=== PATIENT | female | born 1990 | race Caucasian/White ===

== ENCOUNTER 2020-03-07 09:30 | Inpatient (IN) | payer MEDICAID ==
[2020-03-07] MEDS ORDERED: Nalbuphine 10 MG/ML Syringe IVPUSH PRN (15:38)
[2020-03-07] MEDS ORDERED: Sodium Chloride 0.9% 10 ML Syringe FLUSH PRN (15:38)
[2020-03-07] MEDS ORDERED: Misoprostol 25 MCG (1/4 of 100 MCG) Tab VAG PRN (15:38)
--- NOTE | 2020-03-07 15:44 | PCM.LDHP ---
L&D History of Present Illness - General Date of Service: 03/07/20 Admit Problem/Dx: Patient Status Order with Admit Dx/Problem 03/07/20 15:38 Patient Status [ADT] Routine Admission Diagnosis/Problem Admission Diagnosis/Problem High risk Source of Information: Patient History Limitations: Reports: No Limitations - History of Present Illness Introduction:: Patient is a 29-year-old at 39-0/7 weeks gestation. Had routine appointment today when it was noted at fundal height had fallen off. Ultrasound done showed overall EFW at the 3rd percentile. DAVID low normal with a total of 6.7 and single deepest pocket of 3.6 cm. Patient was counseled on these findings and instructed to proceed for induction of labor. Otherwise doing well. 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): Psychiatric History: Reports: ADHD, Anxiety - Infectious Disease History Infectious Disease History: Reports: Herpes (possible history - uncertain) Social & Family History - Tobacco Use Smoking Status *Q: Former Smoker - Alcohol Use Alcohol Use History: No - Recreational Drug Use Recreational Drug Use: No H&P Review of Systems - Review of Systems: Review Of Systems: See Below General: Reports: No Symptoms Pulmonary: Reports: No Symptoms Cardiovascular: Reports: No Symptoms Gastrointestinal: Reports: No Symptoms Genitourinary: Reports: No Symptoms Musculoskeletal: Reports: No Symptoms Psychiatric: Reports: No Symptoms Neurological: Reports: No Symptoms L&D Exam - Exam Exam: See Below - OB Specific Contraction Intensity: Irritability Movement: Active Heart Tones: Present Heart Tones per Min: 135 Heart Rate (FHR) Variability: Moderate (6-25 bmp) Presentation: Vertex - Pearson Score Pearson Score Cervix Position: Midposition Pearson Score Consistency: Soft Pearson Score Effacement: 51-70% Eparson Score Dilation: 1-2 cm Pearson Score Infant's Station: -2 Pearson Score Total: 7 - Exam General: Alert, Oriented, Cooperative Lungs: Clear to Auscultation, Normal Respiratory Effort Cardiovascular: Regular Rate, Regular Rhythm GI/Abdominal Exam: Soft, Non-Tender Genitourinary: Normal external exam Extremities: Normal Inspection Skin: Warm, Dry, Intact - Patient Data Result Diagrams: 03/07/20 16:53 - Problem List (1) 39 weeks gestation of SNOMED Code(s): 69638710 ICD Code: Z3A.39 - 39 WEEKS GESTATION OF Status: Acute Current Visit: No (2) IUGR (intrauterine growth restriction) SNOMED Code(s): 91802928 ICD Code: [id number] - Status: Acute Current Visit: No Problem List Initiated/Reviewed/Updated: Yes Orders Last 24hrs: Active Orders 24 hr Category Date Time Status Patient Status [ADT] Routine ADT 03/07/20 15:38 Ordered Communication Order [RC] ASDIRECTED Care 03/07/20 15:38 Ordered Communication Order [RC] ASDIRECTED Care 03/07/20 15:38 Ordered Communication Order [RC] ASDIRECTED Care 03/07/20 15:38 Ordered Monitoring [RC] INTERMITTENT Care 03/07/20 15:38 Ordered Non Stress Test [RC] PER UNIT ROUTINE Care 03/07/20 15:38 Ordered Notify Provider [RC] ASDIRECTED Care 03/07/20 15:38 Ordered Notify Provider [RC] PRN Care 03/07/20 15:38 Ordered Peripheral IV Care [RC] . DIRECTED Care 03/07/20 15:38 Ordered Up ad Annie [RC] ASDIRECTED Care 03/07/20 15:38 Ordered Vaginal Exam [RC] ASDIRECTED Care 03/07/20 15:38 Ordered Vital Signs [RC] ASDIRECTED Care 03/07/20 15:38 Ordered Vital Signs [RC] PER UNIT ROUTINE Care 03/07/20 15:38 Ordered Regular Diet [DIET] Diet 03/07/20 Dinner Ordered CBC W/O DIFF,HEMOGRAM [HEME] Timed Lab 03/07/20 16:30 Ordered CORONAVIRUS COVID-19 AMANDO [MOLEC] Routine Lab 03/07/20 15:38 Ordered RAPID PLASMA REAGIN,RPR [CHEM] Routine Lab 03/07/20 16:30 Ordered TYPE AND SCREEN [BBK] Timed Lab 03/07/20 16:30 Ordered Lactated Ringers [Ringers, Lactated] 1,000 ml Med 03/07/20 15:45 Ordered IV ASDIRECTED Nalbuphine [Nubain] Med 03/07/20 15:38 Ordered 10 mg IVPUSH Q2H PRN Ondansetron [Zofran] Med 03/07/20 15:38 Ordered 4 mg IVPUSH Q4H PRN Oxytocin/Lactated Ringers [Pitocin in LR 10 Units/1,000 Med 03/07/20 15:45 Ordered ML] 10 unit in 1,000 ml IV .CONTINUOUS Oxytocin/Lactated Ringers [Pitocin in LR 10 Units/1,000 Med 03/07/20 15:45 Ordered ML] 10 unit in 1,000 ml IV TITRATE Sodium Chloride 0.9% [Saline Flush] Med 03/07/20 15:38 Ordered 10 ml FLUSH ASDIRECTED PRN Zolpidem [Ambien] Med 03/07/20 15:38 Ordered 5 mg PO BEDTIME PRN miSOPROStoL [Cytotec] Med 03/07/20 15:38 Ordered 25 mcg VAG Q4H PRN Electronic Heart Tones Internal [WOMSER] Per Unit Oth 03/07/20 15:38 Ordered Routine Medication Administration Instruction [OM.PC] Oth 03/07/20 15:45 Ordered ASDIRECTED Peripheral IV Insertion Adult [OM.PC] Routine Oth 03/07/20 15:38 Ordered Resuscitation Status Routine Resus Stat 03/07/20 15:38 Ordered Assessment/Plan Comment:: * Labs done * GBS negative * Pitocin for IOL, AROM when able * Pain management per patient preference * Anticipate
[2020-03-07] MEDS ORDERED: Oxytocin/Lactated Ringers 10 UNIT/1,000 ML BAG IV SCH ×2 (15:45)
[2020-03-07] MEDS ORDERED: Misoprostol 25 MCG (1/4 of 100 MCG) Tab ONE (16:28)
[2020-03-07] MEDS: Lactated Ringers 1,000 ML IV SCH ×3 (17:16→22:37)
--- NOTE | 2020-03-07 19:56 | PCM.PNLD ---
Labor Progress Note - VS & Meds Vital Signs: Last Vital Signs Temp 36.6 C 03/07/20 15:38 Pulse 80 03/07/20 15:38 Resp 16 03/07/20 15:38 BP 125/85 03/07/20 15:38 Pulse Ox 99 03/07/20 15:38 Active Medications: Current Medications Oxytocin/Lactated Ringer's (Pitocin In Lr 10 Units/1,000 Ml) 10 unit in 1,000 mls @ 12 mls/hr IV TITRATE ERICKA; Protocol Last Titration: 03/07/20 18:45 Dose: 8 munits/min, 48 mls/hr Documented by: Oxytocin/Lactated Ringer's (Pitocin In Lr 10 Units/1,000 Ml) 10 unit in 1,000 mls @ 500 mls/hr IV .CONTINUOUS ERICKA Lactated Ringer's (Ringers, Lactated) 1,000 mls @ 40 mls/hr IV ASDIRECTED ERICKA Last Admin: 03/07/20 17:16 Dose: 40 mls/hr Documented by: Misoprostol (Cytotec) 25 mcg VAG Q4H PRN PRN Reason: cervical ripening Nalbuphine HCl (Nubain) 10 mg IVPUSH Q2H PRN PRN Reason: Pain Ondansetron HCl (Zofran) 4 mg IVPUSH Q4H PRN PRN Reason: Nausea/Vomiting Sodium Chloride (Saline Flush) 10 ml FLUSH ASDIRECTED PRN PRN Reason: Keep Vein Open Zolpidem Tartrate (Ambien) 5 mg PO BEDTIME PRN PRN Reason: Insomnia Discontinued Medications Misoprostol (Cytotec) Confirm Administered Dose 25 mcg .ROUTE .STK-MED ONE Stop: 03/07/20 16:29 - Uterine Contractions Uterine Monitoring Mode: External [place] Contraction Intensity: Mild to Moderate Uterine Resting Tone: Soft - Monitoring Monitor Mode: External Ultrasound Heart Rate (FHR) Baseline: 135 Heart Rate (FHR) Variability: Moderate (6-25 bmp) Accelerations: Present, 15x15 Decelerations: None Strip Review: Category I - Vaginal Exam Dilation (cm): 3 Effacement (Percent): 80 Station: -1 Cervical Position: Midposition Sterile Vaginal Exam Performed By: Lily Vasquez - Labor Progress (Free Text) Labor Progress: Doing well. Pitocin at 8. Rates contractions as a 5-6/10. AROM performed with release of scant amount of fluid. Continue present management
[2020-03-07] MEDS ORDERED: Zolpidem 5 MG Tab PO PRN (21:00)
[2020-03-07] MEDS ORDERED: diphenhydrAMINE 50 MG/ML SDV IVPUSH PRN (21:06)
[2020-03-07] MEDS ORDERED: fentaNYL 100 MCG/2 ML SDV EPIDUR PRN (21:06)
[2020-03-07] MEDS ORDERED: ePHEDrine 50 MG/ML SDV IVPUSH PRN (21:06)
[2020-03-07] MEDS: Ondansetron 4 MG/2 ML SDV IVPUSH PRN (21:49)
[2020-03-07] MEDS: Bupivacaine/fentaNYL/NS 100 ML Bag EPIDUR PRN (21:55)
--- NOTE | 2020-03-07 22:19 | PCM.PREANE ---
Preanesthetic Assessment - Procedure Proposed Procedure: shaji - Anesthesia/Transfusion/Family Hx Anesthesia History: No Prior Anesthesia Family History of Anesthesia Reaction: No Transfusion History: No Prior Transfusion(s) - Review of Systems General: No Symptoms Pulmonary: No Symptoms Cardiovascular: No Symptoms Gastrointestinal: No Symptoms Neurological: No Symptoms Other: Reports: None - Physical Assessment Vital Signs: Last Vital Signs Temp 97.9 F 03/07/20 15:38 Pulse 80 03/07/20 15:38 Resp 16 03/07/20 15:38 BP 125/85 03/07/20 15:38 Pulse Ox 99 03/07/20 15:38 Height: 5 ft 3 in Weight: 85.502 kg ASA Class: 2 Mental Status: Alert & Oriented x3 Airway Class: Mallampati = 1 Dentition: Reports: Normal Dentition Thyro-Mental Finger Breadths: 3 Mouth Opening Finger Breadths: 3 ROM/Head Extension: Full Lungs: Clear to Auscultation, Normal Respiratory Effort Cardiovascular: Regular Rate, Regular Rhythm - Lab Values: Laboratory Last Values WBC 19.00 K/mm3 (3.98-10.04) H 03/07/20 16:53 RBC 4.55 M/mm3 (3.98-5.22) 03/07/20 16:53 Hgb 13.9 gm/dl (11.2-15.7) 03/07/20 16:53 Hct 42.2 % (34.1-44.9) 03/07/20 16:53 MCV 92.7 fl (79.4-94.8) 03/07/20 16:53 MCH 30.5 pg (25.6-32.2) 03/07/20 16:53 MCHC 32.9 g/dl (32.2-35.5) 03/07/20 16:53 RDW Std Deviation 45.9 fL (36.4-46.3) 03/07/20 16:53 Plt Count 287 K/mm3 (182-369) 03/07/20 16:53 MPV 10.8 fl (9.4-12.3) 03/07/20 16:53 COVID-19 (AMANDO) Negative (NEGATIVE) 03/07/20 17:00 Blood Type B POSITIVE 03/07/20 16:53 Gel Antibody Screen Negative 03/07/20 16:53 - Allergies Allergies/Adverse Reactions: Allergies Allergy/AdvReac Type Severity Reaction Status Date / Time No Known Allergies Allergy Verified 03/07/20 16:58 - Blood Blood Available: No - Acknowledgements Anesthesia Type Planned: Epidural Pt an Appropriate Candidate for the Planned Anesthesia: Yes Alternatives and Risks of Anesthesia Discussed w Pt/Guardian: Yes Pt/Guardian Understands and Agrees with Anesthesia Plan: Yes PreAnesthesia Questionnaire Cardiovascular History: Reports: None Respiratory History: Reports: Asthma (exercise induced) Other Respiratory History: exercise induced asthma Gastrointestinal History: Reports: GERD (with preg) 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 Psychiatric History: Reports: ADHD, Anxiety - Infectious Disease History Infectious Disease History: Reports: Herpes (possible history - uncertain) - SUBSTANCE USE Smoking Status *Q: Former Smoker Tobacco Use Within Last Twelve Months: No Second Hand Smoke Exposure: No Days Per Week of Alcohol Use: 0 Recreational Drug Use History: No - HOME MEDS Home Medications: Home Meds Acyclovir [Zovirax] 400 mg PO TID 03/07/20 [History] Calcium Carbonate/Vitamin D3 [Calcium 500 + Vit D 400] 1 each PO DAILY 03/07/20 [History] Fluticasone Propionate [Flonase] 50 mcg NS DAILY PRN 03/07/20 [History] [place]-3/DHA/Epa/Fish Oil [[place]-3 Fish Oil 1,000 MG Sfgl] 1,000 mg PO DAILY 03/07/20 [History] Vits #93/Iron Fum/FA [ Formula Tablet] 1 each PO DAILY 03/07/20 [History] - CURRENT (IN HOUSE) MEDS Current Meds: Current Medications Diphenhydramine HCl (Benadryl) 25 mg IVPUSH Q6H PRN PRN Reason: pruritis Ephedrine Sulfate (Ephedrine Sulfate) 5 mg IVPUSH ASDIRECTED PRN PRN Reason: Hypotension Fentanyl (Sublimaze) 100 mcg EPIDUR Q3H PRN PRN Reason: Pain Last Admin: 03/07/20 21:53 Dose: 100 mcg Documented by: Fentanyl/Bupivacaine HCl (Fentanyl/Bupivacaine/Ns 2 Mcg-0.125% 100 Ml) 100 ml EPIDUR ASDIRECTED PRN PRN Reason: Pain Last Admin: 03/07/20 21:55 Dose: 100 ml Documented by: Oxytocin/Lactated Ringer's (Pitocin In Lr 10 Units/1,000 Ml) 10 unit in 1,000 mls @ 12 mls/hr IV TITRATE ERICKA; Protocol Last Titration: 03/07/20 18:45 Dose: 8 munits/min, 48 mls/hr Documented by: Oxytocin/Lactated Ringer's (Pitocin In Lr 10 Units/1,000 Ml) 10 unit in 1,000 mls @ 500 mls/hr IV .CONTINUOUS ERICKA Lactated Ringer's (Ringers, Lactated) 1,000 mls @ 40 mls/hr IV ASDIRECTED ERICKA Last Admin: 03/07/20 21:50 Dose: 40 mls/hr Documented by: Misoprostol (Cytotec) 25 mcg VAG Q4H PRN PRN Reason: cervical ripening Nalbuphine HCl (Nubain) 10 mg IVPUSH Q2H PRN PRN Reason: Pain Ondansetron HCl (Zofran) 4 mg IVPUSH Q4H PRN PRN Reason: Nausea/Vomiting Last Admin: 03/07/20 21:49 Dose: 4 mg Documented by: Sodium Chloride (Saline Flush) 10 ml FLUSH ASDIRECTED PRN PRN Reason: Keep Vein Open Zolpidem Tartrate (Ambien) 5 mg PO BEDTIME PRN PRN Reason: Insomnia Discontinued Medications Misoprostol (Cytotec) Confirm Administered Dose 25 mcg .ROUTE .STK-MED ONE Stop: 03/07/20 16:29
--- NOTE | 2020-03-07 23:48 | PCM.PNLD ---
Labor Progress Note - VS & Meds Vital Signs: Last Vital Signs Temp 36.6 C 03/07/20 15:38 Pulse 80 03/07/20 15:38 Resp 16 03/07/20 15:38 BP 125/85 03/07/20 15:38 Pulse Ox 99 03/07/20 15:38 Active Medications: Current Medications Diphenhydramine HCl (Benadryl) 25 mg IVPUSH Q6H PRN PRN Reason: pruritis Ephedrine Sulfate (Ephedrine Sulfate) 5 mg IVPUSH ASDIRECTED PRN PRN Reason: Hypotension Fentanyl (Sublimaze) 100 mcg EPIDUR Q3H PRN PRN Reason: Pain Last Admin: 03/07/20 21:53 Dose: 100 mcg Documented by: Fentanyl/Bupivacaine HCl (Fentanyl/Bupivacaine/Ns 2 Mcg-0.125% 100 Ml) 100 ml EPIDUR ASDIRECTED PRN PRN Reason: Pain Last Admin: 03/07/20 21:55 Dose: 100 ml Documented by: Oxytocin/Lactated Ringer's (Pitocin In Lr 10 Units/1,000 Ml) 10 unit in 1,000 mls @ 12 mls/hr IV TITRATE ERICKA; Protocol Last Titration: 03/07/20 18:45 Dose: 8 munits/min, 48 mls/hr Documented by: Oxytocin/Lactated Ringer's (Pitocin In Lr 10 Units/1,000 Ml) 10 unit in 1,000 mls @ 500 mls/hr IV .CONTINUOUS ERICKA Lactated Ringer's (Ringers, Lactated) 1,000 mls @ 40 mls/hr IV ASDIRECTED ERICKA Last Admin: 03/07/20 22:37 Dose: 40 mls/hr Documented by: Misoprostol (Cytotec) 25 mcg VAG Q4H PRN PRN Reason: cervical ripening Nalbuphine HCl (Nubain) 10 mg IVPUSH Q2H PRN PRN Reason: Pain Ondansetron HCl (Zofran) 4 mg IVPUSH Q4H PRN PRN Reason: Nausea/Vomiting Last Admin: 03/07/20 21:49 Dose: 4 mg Documented by: Sodium Chloride (Saline Flush) 10 ml FLUSH ASDIRECTED PRN PRN Reason: Keep Vein Open Zolpidem Tartrate (Ambien) 5 mg PO BEDTIME PRN PRN Reason: Insomnia Discontinued Medications Misoprostol (Cytotec) Confirm Administered Dose 25 mcg .ROUTE .STK-MED ONE Stop: 03/07/20 16:29 - Uterine Contractions Uterine Monitoring Mode: External [place] Contraction Intensity: Moderate to Strong Uterine Resting Tone: Soft - Monitoring Monitor Mode: External Ultrasound Heart Rate (FHR) Baseline: 140 Heart Rate (FHR) Variability: Moderate (6-25 bmp) - Vaginal Exam Dilation (cm): 4 Effacement (Percent): 90 Station: -1 Cervical Position: Midposition Sterile Vaginal Exam Performed By: Lily Vasquez - Labor Progress (Free Text) Labor Progress: Patient with pitocin at 8 at AROM. Was decreased afterwards due to discomfort/increasing contraction pain. Epidural complete at 2217 with pitocin at 2. Patient with a few variables at 2237. Patietn moved to place love and pitocin increased to 4. At 2304 had a 4 minute deceleration into 90's. Recovered for 1 minute and then down into 80's with slow recovery up over next 4 minutes. RN exam 3 / 80%/-1. I was called at this point. Pitocin already off and IVF bolus going. 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 IUPC placed and patient rolled all the way onto left. Variability improve to moderate. Decelerations noted to be early and variable. Contractions pattern strong. Will leave pitocin off. Continue to allow baby to recover. Family aware of plan.
--- NOTE | 2020-03-08 04:10 | PCM.SN.2 ---
- Free Text/Narrative Note: 0400 Called by RN to review tracing since I last left hospital. Had left around [place]. Tracing since showed one late deceleration into 90's at 115 after coupled contraction. Otherwise has early/variable decelerations with contractions. No other late decelerations. Some early decelerations are fairly wide due to cou pling of contractions. Patient has been making change without reinitiation of pitocin. About one hour ago was 5 cm and just had RN recheck and was 6 cm. Asked that she put patient in hands/knees as otherwise been doing lateral position changes. Will plan reassessment in 1 hour, but to call if any new/acute concerns. Lily Vasquez MD
--- NOTE | 2020-03-08 06:07 | PCM.PNLD ---
Labor Progress Note - VS & Meds Vital Signs: Last Vital Signs Temp 36.6 C 03/07/20 15:38 Pulse 80 03/07/20 15:38 Resp 16 03/07/20 15:38 BP 125/85 03/07/20 15:38 Pulse Ox 99 03/07/20 15:38 Active Medications: Current Medications Diphenhydramine HCl (Benadryl) 25 mg IVPUSH Q6H PRN PRN Reason: pruritis Ephedrine Sulfate (Ephedrine Sulfate) 5 mg IVPUSH ASDIRECTED PRN PRN Reason: Hypotension Fentanyl (Sublimaze) 100 mcg EPIDUR Q3H PRN PRN Reason: Pain Last Admin: 03/07/20 21:53 Dose: 100 mcg Documented by: Fentanyl/Bupivacaine HCl (Fentanyl/Bupivacaine/Ns 2 Mcg-0.125% 100 Ml) 100 ml EPIDUR ASDIRECTED PRN PRN Reason: Pain Last Admin: 03/07/20 21:55 Dose: 100 ml Documented by: Oxytocin/Lactated Ringer's (Pitocin In Lr 10 Units/1,000 Ml) 10 unit in 1,000 mls @ 12 mls/hr IV TITRATE ERICKA; Protocol Last Titration: 03/07/20 18:45 Dose: 8 munits/min, 48 mls/hr Documented by: Oxytocin/Lactated Ringer's (Pitocin In Lr 10 Units/1,000 Ml) 10 unit in 1,000 mls @ 500 mls/hr IV .CONTINUOUS ERICKA Lactated Ringer's (Ringers, Lactated) 1,000 mls @ 40 mls/hr IV ASDIRECTED ERICKA Last Admin: 03/07/20 22:37 Dose: 40 mls/hr Documented by: Misoprostol (Cytotec) 25 mcg VAG Q4H PRN PRN Reason: cervical ripening Nalbuphine HCl (Nubain) 10 mg IVPUSH Q2H PRN PRN Reason: Pain Ondansetron HCl (Zofran) 4 mg IVPUSH Q4H PRN PRN Reason: Nausea/Vomiting Last Admin: 03/07/20 21:49 Dose: 4 mg Documented by: Sodium Chloride (Saline Flush) 10 ml FLUSH ASDIRECTED PRN PRN Reason: Keep Vein Open Zolpidem Tartrate (Ambien) 5 mg PO BEDTIME PRN PRN Reason: Insomnia Discontinued Medications Misoprostol (Cytotec) Confirm Administered Dose 25 mcg .ROUTE .STK-MED ONE Stop: 03/07/20 16:29 - Uterine Contractions Uterine Monitoring Mode: IUPC Contraction Intensity: Moderate to Strong Uterine Resting Tone: Soft - Monitoring Monitor Mode: External Ultrasound Heart Rate (FHR) Baseline: 120 Heart Rate (FHR) Variability: Moderate (6-25 bmp) Accelerations: Present, 15x15 Decelerations: Early, Variable Strip Review: Category II - Vaginal Exam Dilation (cm): 6 Effacement (Percent): 90 Station: -1 Cervical Position: Midposition Sterile Vaginal Exam Performed By: Lily Vasquez - Labor Progress (Free Text) Labor Progress: Patient has overall been doing well. RN ALLIE at about 0500 thought patient was about 6-7. My exam currently think patient is more at about a 6. Continues to have some early decelerations and variables, but overall status reassuring with moderate variability. May need to consider augmentation in near future depending upon tolerance
[2020-03-08] MEDS: Bupivacaine/fentaNYL/NS 100 ML Bag EPIDUR PRN (06:30)
[2020-03-08] MEDS ORDERED: Metoclopramide 10 MG/2 ML SDV IVPUSH ONE (07:32)
[2020-03-08] MEDS ORDERED: Citric Acid/Sodium Citrate Solution 30 ML Cup PO ONE (07:32)
--- NOTE | 2020-03-08 07:40 | PCM.SN.2 ---
- Free Text/Narrative Note: 0715 Had started 1 unit of pitocin at 0630. Went up to 2 at about 0645. Was at 3 at 0700 for 5 minutes before back down to 2. Pitocin off at 0710 due to deeper early/longer early decelerations. However, now a nice 7 cm as compared to my last exam when I called her 5-6 about 1 hour ago. Did review with family that likely will need augmentation, but we have to see if baby will tolerate it. Reviewed potential for . She expressed understanding. Did sign c- section orders in case urgent delivery required Lily Vasquez MD
[2020-03-08] MEDS ORDERED: ceFAZolin 2 GM in Premix Bag 1 BAG IV ONE (07:45)
[2020-03-08] MEDS ORDERED: Azithromycin 500 MG in Sodium Chloride 0.9% 250 ML IV ONE (07:45)
[2020-03-08] MEDS: Lactated Ringers 1,000 ML IV SCH (07:49)
[2020-03-08] MEDS: Ondansetron 4 MG/2 ML SDV IVPUSH PRN (08:41)
--- NOTE | 2020-03-08 09:11 | PCM.SN.2 ---
- Free Text/Narrative Note: 0915 Patient with another longer deceleration and remains 7 cm on RN exam. Only on 0.5 of pit. Reviewed with patient has been about 2 hours since last check and no change and inability to augment. Reviewed recommendation to proceed with PLTCS. Patient agrees. Consent signed. OR crew notified. Lily Vasquez MD
[2020-03-08] MEDS ORDERED: fentaNYL 100 MCG/2 ML SDV ONE ×2 (09:22→09:32)
[2020-03-08] MEDS ORDERED: Midazolam 1 MG/ML 2 ML SDV ONE (09:31)
[2020-03-08] MEDS ORDERED: Propofol 200 MG/20 ML SDV ONE (09:33)
[2020-03-08] MEDS ORDERED: Ketamine 500 mg/10 ML MDV ONE (09:35)
[2020-03-08] MEDS ORDERED: Morphine PF 1 MG/ML Amp ONE (09:43)
[2020-03-08] MEDS ORDERED: diphenhydrAMINE 50 MG/ML SDV IVPUSH PRN (09:48)
[2020-03-08] MEDS ORDERED: Ondansetron 4 MG/2 ML SDV IVPUSH PRN (09:48)
[2020-03-08] MEDS ORDERED: fentaNYL 100 MCG/2 ML SDV IVPUSH PRN (09:48)
[2020-03-08] MEDS ORDERED: ceFAZolin 1 GM Vial ONE (09:57)
[2020-03-08] MEDS ORDERED: Lactated Ringers 2,000 ML ONE (09:57)
[2020-03-08] MEDS ORDERED: Ketorolac 30 MG/ML SDV ONE (09:57)
[2020-03-08] MEDS ORDERED: Oxytocin 10 Units/1 ML SDV ONE (09:57)
[2020-03-08] MEDS ORDERED: Dexamethasone 4 MG/ML SDV ONE (10:00)
--- NOTE | 2020-03-08 10:28 | PCM.OPNOTE ---
- General Post-Op/Procedure Note Date of Surgery/Procedure: 03/08/20 Operative Procedure(s): Primary low transverse Findings: Baby boy in vertex presentation with double nuchal cord. APGARS of 7 & 8. Weight of 4 lbs 10 oz. Pre Op Diagnosis: 39 weeks gestation. IUGR. 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 Placenta sent to pathology given concerns for IUGR Fluid Replacement, Intraop: 1,500 Output, Urine Amount: 425 EBL in mLs: 1,000 Complications: None Condition: Good Free Text/Narrative:: The risks, benefits, indications, potential complications, and alternatives were explained to the patient and informed consent obtained. After induction of anesthesia, the patient was placed in a supine position and then draped and prepped in the usual sterile manner. A Pfannenstiel incision was made and carried down through the subcutaneous tissue to the fascia. Fascial incision was made and extended transversely. The fascia was from the underlying rectus tissue superiorly and inferiorly. The peritoneum was identified and entered. Peritoneal incision was extended longitudinally. The utero-vesical peritoneal reflection was incised transversely and the bladder flap was bluntly freed from the lower uterine segment. A low transverse uterine incision was made sharply with a scalpel and extended bluntly in a cephalocaudad direction. A baby boy was delivered from a vertex presentation with APGARS as above. After the umbilical cord was clamped and cut cord blood was obtained for evaluation. The placenta was removed intact and appeared calcified. The uterus was exteriorized and cleared of clots. The uterine outline, tubes and ovaries appeared normal. The uterine incision was closed with running locked sutures of 0 Vicryl. A second imbricating layer of 0 Vicryl was then done. The uterus was then placed back into the abdomen. The infracolic gutters were cleared of blood clots. Slight bleeding noted from left aspect of hysterotomy. This was controlled with additional running sutures of 0 Vicryl and also Alek- Seal/pressure. The fascia was then reapproximated with running sutures of 0 Vicryl. The subcutaneous tissue was irrigated with sterile warm normal saline, hemostasis obtained with cautery. The skin was reapproximated with running Subcuticular 4-0 Monocryl sutures. Instrument, sponge, and needle counts were correct prior the abdominal closure and at the conclusion of the case.
--- NOTE | 2020-03-08 10:30 | PCM.POSTAN ---
POST ANESTHESIA ASSESSMENT - MENTAL STATUS Mental Status: Alert, Oriented - VITAL SIGNS Vital Signs: Last Vital Signs Temp 36.6 C 03/07/20 15:38 Pulse 80 03/07/20 15:38 Resp 16 03/07/20 15:38 BP 125/85 03/07/20 15:38 Pulse Ox 99 03/07/20 15:38 1021 92/54 92 16 99% 98.2F - RESPIRATORY Respiratory Status: Respiratory Rate WNL, Airway Patent, O2 Saturation Stable - CARDIOVASCULAR CV Status: Pulse Rate WNL, Blood Pressure Stable - GASTROINTESTINAL GI Status: No Symptoms - PAIN Pain Score: 0 - POST OP HYDRATION Hydration Status: Adequate & Stable
[2020-03-08] MEDS ORDERED: Meperidine 50 MG/ML Vial IVPUSH PRN (10:31)
[2020-03-08] MEDS ORDERED: Naloxone 0.4 MG/ML SDV IVPUSH PRN (10:38)
[2020-03-08] MEDS ORDERED: Dextrose 5%-Lactated Ringers 1,000 ML IV SCH (10:38)
[2020-03-08] MEDS ORDERED: Acetaminophen/oxyCODONE 325-5 MG Tab PO PRN (10:38)
[2020-03-08] MEDS: Ketorolac 30 MG/ML SDV IVPUSH SCH ×2 (16:36→22:29)
[2020-03-09] MEDS: Ketorolac 30 MG/ML SDV IVPUSH SCH (05:10)
--- NOTE | 2020-03-09 06:02 | PCM.PNPP ---
- General Info Date of Service: 03/09/20 Functional Status: Reports: Pain Controlled, Tolerating Diet, Ambulating, Urinating - Review of Systems General: Reports: No Symptoms Pulmonary: Reports: No Symptoms Cardiovascular: Reports: No Symptoms Gastrointestinal: Reports: Abdominal Pain (managed) Genitourinary: Reports: No Symptoms Musculoskeletal: Reports: No Symptoms Neurological: Reports: No Symptoms - General Info Date of Service: 03/09/20 - Patient Data Vital Signs - Most Recent: Last Vital Signs Temp 36.3 C 03/08/20 15:23 Pulse 64 03/08/20 23:00 Resp 15 03/09/20 05:00 BP 129/83 03/08/20 15:23 Pulse Ox 98 03/09/20 05:00 Weight - Most Recent: 85.502 kg I&O - Last 24 Hours: Intake & Output 03/08/20 03/08/20 03/09/20 14:59 22:59 06:59 Intake Total 2200 1120 Output Total 1020 1150 1800 Balance 1180 -30 -1800 Lab Results - Last 24 Hours: Laboratory Results - last 24 hr 03/07/20 Range/Units 16:53 RPR Non-reactive (NONREACTIVE) Med Orders - Current: Current Medications Diphenhydramine HCl (Benadryl) 25 mg IVPUSH Q6H PRN PRN Reason: Pruritis Docusate Sodium (Colace) 100 mg PO Q12H PRN PRN Reason: Constipation Fentanyl (Sublimaze) 50 mcg IVPUSH Q5M PRN PRN Reason: Pain Ibuprofen (Motrin) 600 mg PO Q6H PRN PRN Reason: mild pain or fever Meperidine HCl (Meperidine) 12.5 mg IVPUSH ONETIME PRN PRN Reason: Shivering Naloxone HCl (Narcan) 0.1 mg IVPUSH SEECOMMENT PRN PRN Reason: Respiratory Depression Ondansetron HCl (Zofran) 4 mg IVPUSH ONETIME PRN PRN Reason: Nausea/Vomiting Oxycodone/Acetaminophen (Percocet 325-5 Mg) 1 tab PO Q4H PRN PRN Reason: Pain (moderate 4-6) Oxycodone/Acetaminophen (Percocet 325-5 Mg) 2 tab PO Q4H PRN PRN Reason: Pain (severe 7-10) Discontinued Medications Cefazolin Sodium (Ancef) Confirm Administered Dose 2 gm .ROUTE .STK-MED ONE Stop: 03/08/20 09:58 Citric Acid/Sodium Citrate (Bicitra Solution) 30 ml PO ONETIME ONE Stop: 03/08/20 07:33 Last Admin: 03/08/20 09:06 Dose: 30 ml Documented by: Dexamethasone (Dexamethasone) Confirm Administered Dose 4 mg .ROUTE .STK-MED ONE Stop: 03/08/20 10:01 Diphenhydramine HCl (Benadryl) 25 mg IVPUSH Q6H PRN PRN Reason: pruritis Ephedrine Sulfate (Ephedrine Sulfate) 5 mg IVPUSH ASDIRECTED PRN PRN Reason: Hypotension Fentanyl (Sublimaze) 100 mcg EPIDUR Q3H PRN PRN Reason: Pain Last Admin: 03/07/20 21:53 Dose: 100 mcg Documented by: Fentanyl (Sublimaze) Confirm Administered Dose 100 mcg .ROUTE .STK-MED ONE Stop: 03/08/20 09:23 Fentanyl (Sublimaze) Confirm Administered Dose 100 mcg .ROUTE .STK-MED ONE Stop: 03/08/20 09:33 Fentanyl/Bupivacaine HCl (Fentanyl/Bupivacaine/Ns 2 Mcg-0.125% 100 Ml) 100 ml EPIDUR ASDIRECTED PRN PRN Reason: Pain Last Admin: 03/08/20 06:30 Dose: 100 ml Documented by: Oxytocin/Lactated Ringer's (Pitocin In Lr 10 Units/1,000 Ml) 10 unit in 1,000 mls @ 12 mls/hr IV TITRATE ERICKA; Protocol Last Titration: 03/08/20 07:45 Dose: 0.5 munits/min, 3 mls/hr Documented by: Oxytocin/Lactated Ringer's (Pitocin In Lr 10 Units/1,000 Ml) 10 unit in 1,000 mls @ 500 mls/hr IV .CONTINUOUS ERICKA Lactated Ringer's (Ringers, Lactated) 1,000 mls @ 40 mls/hr IV ASDIRECTED ERICKA Last Admin: 03/08/20 07:49 Dose: 100 mls/hr Documented by: Cefazolin Sodium/Dextrose 2 gm (/ Premix) 50 mls @ 100 mls/hr IV ONETIME ONE Stop: 03/08/20 08:14 Azithromycin 500 mg/ Sodium (Chloride) 250 mls @ 250 mls/hr IV ONETIME ONE Stop: 03/08/20 08:44 Lactated Ringer's (Ringers, Lactated) Confirm Administered Dose 2,000 mls @ as directed .ROUTE .STK-MED ONE Stop: 03/08/20 09:58 Dextrose/Lactated Ringer's (Dextrose 5%-Lactated Ringers) 1,000 mls @ 125 mls/hr IV ASDIRECTED [facility] Stop: 03/08/20 18:37 Last Admin: 03/08/20 13:12 Dose: 125 mls/hr Documented by: Ketamine HCl (Ketalar) Confirm Administered Dose 500 mg .ROUTE .STK-MED ONE Stop: 03/08/20 09:36 Ketorolac Tromethamine (Toradol) Confirm Administered Dose 30 mg .ROUTE .STK-MED ONE Stop: 03/08/20 09:58 Ketorolac Tromethamine (Toradol) 30 mg IVPUSH Q6H [facility] Stop: 03/09/20 04:31 Last Admin: 03/09/20 05:10 Dose: 30 mg Documented by: Metoclopramide HCl (Reglan) 10 mg IVPUSH ONETIME ONE Stop: 03/08/20 07:33 Last Admin: 03/08/20 09:06 Dose: 10 mg Documented by: Midazolam HCl (Versed 1 Mg/Ml) Confirm Administered Dose 2 mg .ROUTE .STK-MED ONE Stop: 03/08/20 09:32 Misoprostol (Cytotec) 25 mcg VAG Q4H PRN PRN Reason: cervical ripening Misoprostol (Cytotec) Confirm Administered Dose 25 mcg .ROUTE .STK-MED ONE Stop: 03/07/20 16:29 Last Admin: 03/08/20 06:29 Dose: Not Given Documented by: Morphine Sulfate (Duramorph Pf) Confirm Administered Dose 1 mg .ROUTE .STK-MED ONE Stop: 03/08/20 09:44 Nalbuphine HCl (Nubain) 10 mg IVPUSH Q2H PRN PRN Reason: Pain Ondansetron HCl (Zofran) 4 mg IVPUSH Q4H PRN PRN Reason: Nausea/Vomiting Last Admin: 03/08/20 08:41 Dose: 4 mg Documented by: Oxytocin (Pitocin) Confirm Administered Dose 20 unit .ROUTE .STK-MED ONE Stop: 03/08/20 09:58 Propofol (Diprivan 20 Ml) Confirm Administered Dose 200 mg .ROUTE .STK-MED ONE Stop: 03/08/20 09:34 Sodium Chloride (Saline Flush) 10 ml FLUSH ASDIRECTED PRN PRN Reason: Keep Vein Open Zolpidem Tartrate (Ambien) 5 mg PO BEDTIME PRN PRN Reason: Insomnia - Infant Interaction Infant Disposition, : to Nursery Infant Feeding: Attempted ; Nursed Fair/Poor, Other (see below) (pumping) Support Person: Significant Other - Recovery Exam Fundal Tone: Firm Fundal Level: 1 Fingerbreadths Below Umbilicus Fundal Placement: Midline Lochia Amount: Small Lochia Color: Rubra/Red Perineum Description: Intact, Minimal Bruising/Swelling Episiotomy/Laceration: None Urinary Elimination: Indwelling Catheter - Exam General: Alert, Oriented, Cooperative Lungs: Clear to Auscultation, Normal Respiratory Effort Cardiovascular: Regular Rate, Regular Rhythm GI/Abdominal Exam: Soft, Tender (appropriate ) Extremities: Normal Inspection Skin: Warm, Dry, Intact Wound/Incisions: Healing Well, No Drainage - Problem List & Annotations (1) 39 weeks gestation of SNOMED Code(s): 75598374 Code(s): Z3A.39 - 39 WEEKS GESTATION OF Status: Acute Current Visit: No (2) IUGR (intrauterine growth restriction) SNOMED Code(s): 68866957 Code(s): RPM2683 - Status: Acute Current Visit: No (3) Non-reassuring status SNOMED Code(s): 329260787 Code(s): FSY4185 - Status: Acute Current Visit: Yes (4) S/P primary low transverse SNOMED Code(s): 360408086, 57407494, 612970179, 943832836, 006937866 Code(s): Z98.891 - HISTORY OF UTERINE SCAR FROM PREVIOUS SURGERY Status: Acute Current Visit: Yes (5) Acute blood loss anemia SNOMED Code(s): 082181470 Code(s): D62 - ACUTE POSTHEMORRHAGIC ANEMIA Status: Acute Current Visit: Yes - Problem List Review Problem List Initiated/Reviewed/Updated: Yes - My Orders Last 24 Hours: My Active Orders 03/08/20 10:38 Acetaminophen/oxyCODONE [Percocet 325-5 MG] 1 tab PO Q4H PRN Acetaminophen/oxyCODONE [Percocet 325-5 MG] 2 tab PO Q4H PRN Docusate Sodium [Colace] 100 mg PO Q12H PRN Naloxone [Narcan] 0.1 mg IVPUSH SEECOMMENT PRN 03/08/20 10:38 Activity as Tolerated [RC] .Routine Antiembolic Devices [RC] PER UNIT ROUTINE Communication Order [RC] PER UNIT ROUTINE Intake and Output [RC] Q4HR May Shower [RC] PER UNIT ROUTINE Notify Provider Intake and Out [RC] ASDIRECTED RT Incentive Spirometry [RC] Q2HWA Assess Lochia [WOMSER] Per Unit Routine Assess Uterine Involution [WOMSER] Per Unit Routine Breast Pump [WOMSER] Per Unit Routine Heat Therapy [OM.PC] Per Unit Routine Peripheral IV Discontinue [OM.PC] Routine Sequential Compression Device [OM.PC] Per Unit Routine 03/08/20 Lunch Regular Diet [DIET] 03/09/20 05:46 CBC W/O DIFF,HEMOGRAM [HEME] AM 03/09/20 10:23 Urinary Catheter Removal [RC] Per Unit Routine 03/09/20 10:38 Ibuprofen [Motrin] 600 mg PO Q6H PRN - Assessment Assessment:: POD#1 - Plan Plan:: * Routine cares * Pumping/hand expressing while baby in Level 2 * Iron for post op anemia * Routine cares * Discharge in 2 days
--- NOTE | 2020-03-09 07:25 | PCM48HPAN ---
Post Anesthesia Note - EVALUATION WITHIN 48HRS OF ANESTHETIC Vital Signs in Normal Range: Yes Patient Participated in Evaluation: Yes Respiratory Function Stable: Yes Airway Patent: Yes Cardiovascular Function Stable: Yes Hydration Status Stable: Yes Pain Control Satisfactory: Yes Nausea and Vomiting Control Satisfactory: Yes Mental Status Recovered: Yes Vital Signs: Last Vital Signs Temp 36.3 C 03/08/20 15:23 Pulse 64 03/08/20 23:00 Resp 15 03/09/20 05:00 BP 129/83 03/08/20 15:23 Pulse Ox 98 03/09/20 05:00
[2020-03-09] MEDS: Prenatal Multivitamin with Calcium/Folic Acid/Iron Tab PO SCH (08:49)
[2020-03-09] MEDS: Acetaminophen/oxyCODONE 325-5 MG Tab PO PRN ×2 (08:50→21:36)
[2020-03-09] MEDS: Ibuprofen 600 MG Tab PO PRN (15:05)
[2020-03-10] MEDS: Ibuprofen 600 MG Tab PO PRN ×4 (01:31→22:56)
[2020-03-10] MEDS: Acetaminophen/oxyCODONE 325-5 MG Tab PO PRN ×2 (03:45→20:35)
--- NOTE | 2020-03-10 06:43 | PCM.PNPP ---
- General Info Date of Service: 03/10/20 Functional Status: Reports: Pain Controlled, Tolerating Diet, Ambulating, Urinating - Review of Systems General: Reports: No Symptoms Pulmonary: Reports: No Symptoms Cardiovascular: Reports: No Symptoms Gastrointestinal: Reports: No Symptoms Genitourinary: Reports: No Symptoms Musculoskeletal: Reports: No Symptoms Neurological: Reports: No Symptoms - Patient Data Vital Signs - Most Recent: Last Vital Signs Temp 36.9 C 03/10/20 04:11 Pulse 89 03/10/20 04:11 Resp 14 03/10/20 04:11 BP 120/78 03/10/20 04:11 Pulse Ox 95 03/10/20 04:11 Weight - Most Recent: 85.502 kg I&O - Last 24 Hours: Intake & Output 03/09/20 03/09/20 03/10/20 14:59 22:59 06:59 Intake Total 120 Output Total 700 Balance -580 Med Orders - Current: Current Medications Docusate Sodium (Colace) 100 mg PO Q12H PRN PRN Reason: Constipation Ibuprofen (Motrin) 600 mg PO Q6H PRN PRN Reason: mild pain or fever Last Admin: 03/10/20 01:31 Dose: 600 mg Documented by: Naloxone HCl (Narcan) 0.1 mg IVPUSH SEECOMMENT PRN PRN Reason: Respiratory Depression Oxycodone/Acetaminophen (Percocet 325-5 Mg) 1 tab PO Q4H PRN PRN Reason: Pain (moderate 4-6) Last Admin: 03/10/20 03:45 Dose: 1 tab Documented by: Oxycodone/Acetaminophen (Percocet 325-5 Mg) 2 tab PO Q4H PRN PRN Reason: Pain (severe 7-10) Prenat Multivit/Behavioral Sciences Instructor/Iron/Folic Ac ( Plus Iron) 1 each PO DAILY ERICKA Last Admin: 03/09/20 08:49 Dose: 1 each Documented by: Discontinued Medications Cefazolin Sodium (Ancef) Confirm Administered Dose 2 gm .ROUTE .STK-MED ONE Stop: 03/08/20 09:58 Citric Acid/Sodium Citrate (Bicitra Solution) 30 ml PO ONETIME ONE Stop: 03/08/20 07:33 Last Admin: 03/08/20 09:06 Dose: 30 ml Documented by: Dexamethasone (Dexamethasone) Confirm Administered Dose 4 mg .ROUTE .STK-MED ONE Stop: 03/08/20 10:01 Diphenhydramine HCl (Benadryl) 25 mg IVPUSH Q6H PRN PRN Reason: pruritis Diphenhydramine HCl (Benadryl) 25 mg IVPUSH Q6H PRN PRN Reason: Pruritis Ephedrine Sulfate (Ephedrine Sulfate) 5 mg IVPUSH ASDIRECTED PRN PRN Reason: Hypotension Fentanyl (Sublimaze) 100 mcg EPIDUR Q3H PRN PRN Reason: Pain Last Admin: 03/07/20 21:53 Dose: 100 mcg Documented by: Fentanyl (Sublimaze) Confirm Administered Dose 100 mcg .ROUTE .STK-MED ONE Stop: 03/08/20 09:23 Fentanyl (Sublimaze) Confirm Administered Dose 100 mcg .ROUTE .STK-MED ONE Stop: 03/08/20 09:33 Fentanyl (Sublimaze) 50 mcg IVPUSH Q5M PRN PRN Reason: Pain Fentanyl/Bupivacaine HCl (Fentanyl/Bupivacaine/Ns 2 Mcg-0.125% 100 Ml) 100 ml EPIDUR ASDIRECTED PRN PRN Reason: Pain Last Admin: 03/08/20 06:30 Dose: 100 ml Documented by: Oxytocin/Lactated Ringer's (Pitocin In Lr 10 Units/1,000 Ml) 10 unit in 1,000 mls @ 12 mls/hr IV TITRATE ERICKA; Protocol Last Titration: 03/08/20 07:45 Dose: 0.5 munits/min, 3 mls/hr Documented by: Oxytocin/Lactated Ringer's (Pitocin In Lr 10 Units/1,000 Ml) 10 unit in 1,000 mls @ 500 mls/hr IV .CONTINUOUS ERICKA Lactated Ringer's (Ringers, Lactated) 1,000 mls @ 40 mls/hr IV ASDIRECTED ERICKA Last Admin: 03/08/20 07:49 Dose: 100 mls/hr Documented by: Cefazolin Sodium/Dextrose 2 gm (/ Premix) 50 mls @ 100 mls/hr IV ONETIME ONE Stop: 03/08/20 08:14 Azithromycin 500 mg/ Sodium (Chloride) 250 mls @ 250 mls/hr IV ONETIME ONE Stop: 03/08/20 08:44 Lactated Ringer's (Ringers, Lactated) Confirm Administered Dose 2,000 mls @ as directed .ROUTE .STK-MED ONE Stop: 03/08/20 09:58 Dextrose/Lactated Ringer's (Dextrose 5%-Lactated Ringers) 1,000 mls @ 125 mls/hr IV ASDIRECTED [facility] Stop: 03/08/20 18:37 Last Admin: 03/08/20 13:12 Dose: 125 mls/hr Documented by: Ketamine HCl (Ketalar) Confirm Administered Dose 500 mg .ROUTE .STK-MED ONE Stop: 03/08/20 09:36 Ketorolac Tromethamine (Toradol) Confirm Administered Dose 30 mg .ROUTE .STK-MED ONE Stop: 03/08/20 09:58 Ketorolac Tromethamine (Toradol) 30 mg IVPUSH Q6H [facility] Stop: 03/09/20 04:31 Last Admin: 03/09/20 05:10 Dose: 30 mg Documented by: Meperidine HCl (Meperidine) 12.5 mg IVPUSH ONETIME PRN PRN Reason: Shivering Metoclopramide HCl (Reglan) 10 mg IVPUSH ONETIME ONE Stop: 03/08/20 07:33 Last Admin: 03/08/20 09:06 Dose: 10 mg Documented by: Midazolam HCl (Versed 1 Mg/Ml) Confirm Administered Dose 2 mg .ROUTE .STK-MED ONE Stop: 03/08/20 09:32 Misoprostol (Cytotec) 25 mcg VAG Q4H PRN PRN Reason: cervical ripening Misoprostol (Cytotec) Confirm Administered Dose 25 mcg .ROUTE .STK-MED ONE Stop: 03/07/20 16:29 Last Admin: 03/08/20 06:29 Dose: Not Given Documented by: Morphine Sulfate (Duramorph Pf) Confirm Administered Dose 1 mg .ROUTE .STK-MED ONE Stop: 03/08/20 09:44 Nalbuphine HCl (Nubain) 10 mg IVPUSH Q2H PRN PRN Reason: Pain Ondansetron HCl (Zofran) 4 mg IVPUSH Q4H PRN PRN Reason: Nausea/Vomiting Last Admin: 03/08/20 08:41 Dose: 4 mg Documented by: Ondansetron HCl (Zofran) 4 mg IVPUSH ONETIME PRN PRN Reason: Nausea/Vomiting Oxytocin (Pitocin) Confirm Administered Dose 20 unit .ROUTE .STK-MED ONE Stop: 03/08/20 09:58 Propofol (Diprivan 20 Ml) Confirm Administered Dose 200 mg .ROUTE .STK-MED ONE Stop: 03/08/20 09:34 Sodium Chloride (Saline Flush) 10 ml FLUSH ASDIRECTED PRN PRN Reason: Keep Vein Open Zolpidem Tartrate (Ambien) 5 mg PO BEDTIME PRN PRN Reason: Insomnia - Interaction Disposition, : [place] to Nursery Infant Feeding: Attempted ; Nursed Fair/Poor, Other (see below) (pumping) Support Person: Significant Other - Recovery Exam Fundal Tone: Firm Fundal Level: 2 Fingerbreadths Below Umbilicus Fundal Placement: Midline Lochia Amount: Small Lochia Color: Rubra/Red Perineum Description: Intact, Minimal Bruising/Swelling Episiotomy/Laceration: None Bladder Status: Voiding Urinary Elimination: Indwelling Catheter - Exam General: Alert, Oriented, Cooperative Lungs: Clear to Auscultation, Normal Respiratory Effort Cardiovascular: Regular Rate, Regular Rhythm GI/Abdominal Exam: Soft, Non-Tender Extremities: Normal Inspection Skin: Warm, Dry, Intact Wound/Incisions: Healing Well, No Drainage - Problem List & Annotations (1) 39 weeks gestation of SNOMED Code(s): 60393662 Code(s): Z3A.39 - 39 WEEKS GESTATION OF Status: Acute Current Visit: No (2) IUGR (intrauterine growth restriction) SNOMED Code(s): 18143004 Code(s): TML8404 - Status: Acute Current Visit: No (3) Non-reassuring status SNOMED Code(s): 940496053 Code(s): NJJ7692 - Status: Acute Current Visit: Yes (4) S/P primary low transverse SNOMED Code(s): 742439278, 42612551, 794901718, 404150005, 127717664 Code(s): Z98.891 - HISTORY OF UTERINE SCAR FROM PREVIOUS SURGERY Status: Acute Current Visit: Yes (5) Acute blood loss anemia SNOMED Code(s): 781719463 Code(s): D62 - ACUTE POSTHEMORRHAGIC ANEMIA Status: Acute Current Visit: Yes - Problem List Review Problem List Initiated/Reviewed/Updated: Yes - My Orders Last 24 Hours: My Active Orders 03/09/20 09:00 Vit with Ca/FA/Iron [ Plus Iron] 1 each PO DAILY 03/09/20 10:38 Ibuprofen [Motrin] 600 mg PO Q6H PRN - Assessment Assessment:: POD#2 - Plan Plan:: * Routine cares * Iron for post op anemia * Routine cares * Discharge tomorrow
[2020-03-10] MEDS: Prenatal Multivitamin with Calcium/Folic Acid/Iron Tab PO SCH (09:26)
[2020-03-10] MEDS: Docusate Sodium 100 MG Cap PO PRN (14:16)
[2020-03-11] MEDS: Acetaminophen/oxyCODONE 325-5 MG Tab PO PRN (02:48)
[2020-03-11] MEDS: Docusate Sodium 100 MG Cap PO PRN (02:48)
[2020-03-11] MEDS: Ibuprofen 600 MG Tab PO PRN (05:33)
--- NOTE | 2020-03-11 05:36 | PCM.PNPP ---
- General Info Date of Service: 03/11/20 Functional Status: Reports: Pain Controlled, Tolerating Diet, Ambulating, Urinating - Review of Systems General: Reports: No Symptoms Pulmonary: Reports: No Symptoms Cardiovascular: Reports: No Symptoms Gastrointestinal: Reports: No Symptoms Genitourinary: Reports: No Symptoms Musculoskeletal: Reports: No Symptoms Neurological: Reports: No Symptoms - Patient Data Vital Signs - Most Recent: Last Vital Signs Temp 37.0 C 03/11/20 02:50 Pulse 68 03/11/20 02:50 Resp 15 03/11/20 02:50 BP 121/81 03/11/20 02:50 Pulse Ox 98 03/11/20 02:50 Weight - Most Recent: 85.502 kg I&O - Last 24 Hours: Intake & Output 03/10/20 03/10/20 03/11/20 14:59 22:59 06:59 Intake Total 242 Balance 242 Med Orders - Current: Current Medications Docusate Sodium (Colace) 100 mg PO Q12H PRN PRN Reason: Constipation Last Admin: 03/11/20 02:48 Dose: 100 mg Documented by: Ibuprofen (Motrin) 600 mg PO Q6H PRN PRN Reason: mild pain or fever Last Admin: 03/11/20 05:33 Dose: 600 mg Documented by: Naloxone HCl (Narcan) 0.1 mg IVPUSH SEECOMMENT PRN PRN Reason: Respiratory Depression Oxycodone/Acetaminophen (Percocet 325-5 Mg) 1 tab PO Q4H PRN PRN Reason: Pain (moderate 4-6) Last Admin: 03/11/20 02:48 Dose: 1 tab Documented by: Oxycodone/Acetaminophen (Percocet 325-5 Mg) 2 tab PO Q4H PRN PRN Reason: Pain (severe 7-10) Prenat Multivit/Trim Mounter/Iron/Folic Ac ( Plus Iron) 1 each PO DAILY ERICKA Last Admin: 03/10/20 09:26 Dose: 1 each Documented by: Discontinued Medications Cefazolin Sodium (Ancef) Confirm Administered Dose 2 gm .ROUTE .STK-MED ONE Stop: 03/08/20 09:58 Citric Acid/Sodium Citrate (Bicitra Solution) 30 ml PO ONETIME ONE Stop: 03/08/20 07:33 Last Admin: 03/08/20 09:06 Dose: 30 ml Documented by: Dexamethasone (Dexamethasone) Confirm Administered Dose 4 mg .ROUTE .STK-MED ONE Stop: 03/08/20 10:01 Diphenhydramine HCl (Benadryl) 25 mg IVPUSH Q6H PRN PRN Reason: pruritis Diphenhydramine HCl (Benadryl) 25 mg IVPUSH Q6H PRN PRN Reason: Pruritis Ephedrine Sulfate (Ephedrine Sulfate) 5 mg IVPUSH ASDIRECTED PRN PRN Reason: Hypotension Fentanyl (Sublimaze) 100 mcg EPIDUR Q3H PRN PRN Reason: Pain Last Admin: 03/07/20 21:53 Dose: 100 mcg Documented by: Fentanyl (Sublimaze) Confirm Administered Dose 100 mcg .ROUTE .STK-MED ONE Stop: 03/08/20 09:23 Fentanyl (Sublimaze) Confirm Administered Dose 100 mcg .ROUTE .STK-MED ONE Stop: 03/08/20 09:33 Fentanyl (Sublimaze) 50 mcg IVPUSH Q5M PRN PRN Reason: Pain Fentanyl/Bupivacaine HCl (Fentanyl/Bupivacaine/Ns 2 Mcg-0.125% 100 Ml) 100 ml EPIDUR ASDIRECTED PRN PRN Reason: Pain Last Admin: 03/08/20 06:30 Dose: 100 ml Documented by: Oxytocin/Lactated Ringer's (Pitocin In Lr 10 Units/1,000 Ml) 10 unit in 1,000 mls @ 12 mls/hr IV TITRATE ERICKA; Protocol Last Titration: 03/08/20 07:45 Dose: 0.5 munits/min, 3 mls/hr Documented by: Oxytocin/Lactated Ringer's (Pitocin In Lr 10 Units/1,000 Ml) 10 unit in 1,000 mls @ 500 mls/hr IV .CONTINUOUS ERICKA Lactated Ringer's (Ringers, Lactated) 1,000 mls @ 40 mls/hr IV ASDIRECTED ERICKA Last Admin: 03/08/20 07:49 Dose: 100 mls/hr Documented by: Cefazolin Sodium/Dextrose 2 gm (/ Premix) 50 mls @ 100 mls/hr IV ONETIME ONE Stop: 03/08/20 08:14 Last Admin: 03/10/20 19:38 Dose: Not Given Documented by: Azithromycin 500 mg/ Sodium (Chloride) 250 mls @ 250 mls/hr IV ONETIME ONE Stop: 03/08/20 08:44 Last Admin: 03/10/20 19:38 Dose: Not Given Documented by: Lactated Ringer's (Ringers, Lactated) Confirm Administered Dose 2,000 mls @ as directed .ROUTE .STK-MED ONE Stop: 03/08/20 09:58 Dextrose/Lactated Ringer's (Dextrose 5%-Lactated Ringers) 1,000 mls @ 125 mls/hr IV ASDIRECTED [facility] Stop: 03/08/20 18:37 Last Admin: 03/08/20 13:12 Dose: 125 mls/hr Documented by: Ketamine HCl (Ketalar) Confirm Administered Dose 500 mg .ROUTE .STK-MED ONE Stop: 03/08/20 09:36 Ketorolac Tromethamine (Toradol) Confirm Administered Dose 30 mg .ROUTE .STK-MED ONE Stop: 03/08/20 09:58 Ketorolac Tromethamine (Toradol) 30 mg IVPUSH Q6H [facility] Stop: 03/09/20 04:31 Last Admin: 03/09/20 05:10 Dose: 30 mg Documented by: Meperidine HCl (Meperidine) 12.5 mg IVPUSH ONETIME PRN PRN Reason: Shivering Metoclopramide HCl (Reglan) 10 mg IVPUSH ONETIME ONE Stop: 03/08/20 07:33 Last Admin: 03/08/20 09:06 Dose: 10 mg Documented by: Midazolam HCl (Versed 1 Mg/Ml) Confirm Administered Dose 2 mg .ROUTE .STK-MED ONE Stop: 03/08/20 09:32 Misoprostol (Cytotec) 25 mcg VAG Q4H PRN PRN Reason: cervical ripening Misoprostol (Cytotec) Confirm Administered Dose 25 mcg .ROUTE .STK-MED ONE Stop: 03/07/20 16:29 Last Admin: 03/08/20 06:29 Dose: Not Given Documented by: Morphine Sulfate (Duramorph Pf) Confirm Administered Dose 1 mg .ROUTE .STK-MED ONE Stop: 03/08/20 09:44 Nalbuphine HCl (Nubain) 10 mg IVPUSH Q2H PRN PRN Reason: Pain Ondansetron HCl (Zofran) 4 mg IVPUSH Q4H PRN PRN Reason: Nausea/Vomiting Last Admin: 03/08/20 08:41 Dose: 4 mg Documented by: Ondansetron HCl (Zofran) 4 mg IVPUSH ONETIME PRN PRN Reason: Nausea/Vomiting Oxytocin (Pitocin) Confirm Administered Dose 20 unit .ROUTE .STK-MED ONE Stop: 03/08/20 09:58 Propofol (Diprivan 20 Ml) Confirm Administered Dose 200 mg .ROUTE .STK-MED ONE Stop: 03/08/20 09:34 Sodium Chloride (Saline Flush) 10 ml FLUSH ASDIRECTED PRN PRN Reason: Keep Vein Open Zolpidem Tartrate (Ambien) 5 mg PO BEDTIME PRN PRN Reason: Insomnia - Interaction Infant Disposition, : in Room with Family Interaction: Holding Infant Feeding: Attempted ; Nursed Fair/Poor, Other (see below) (pumping) Support Person: Significant Other - Recovery Exam Fundal Tone: Firm Fundal Level: 2 Fingerbreadths Below Umbilicus Fundal Placement: Midline Lochia Amount: Scant, Small Lochia Color: Rubra/Red Perineum Description: Intact, Minimal Bruising/Swelling Episiotomy/Laceration: None Bladder Status: Voiding Urinary Elimination: Voided - Exam General: Alert, Oriented, Cooperative Lungs: Clear to Auscultation, Normal Respiratory Effort Cardiovascular: Regular Rate, Regular Rhythm GI/Abdominal Exam: Soft, Non-Tender Extremities: Normal Inspection Skin: Warm, Dry, Intact Wound/Incisions: Healing Well, No Drainage - Problem List & Annotations (1) 39 weeks gestation of SNOMED Code(s): 68053826 Code(s): Z3A.39 - 39 WEEKS GESTATION OF Status: Acute Current Visit: No (2) IUGR (intrauterine growth restriction) SNOMED Code(s): 38155368 Code(s): XBD1613 - Status: Acute Current Visit: No (3) Non-reassuring status SNOMED Code(s): 762981789 Code(s): VYL7937 - Status: Acute Current Visit: Yes (4) S/P primary low transverse SNOMED Code(s): 963680792, 78070936, 381707931, 469377296, 322683874 Code(s): Z98.891 - HISTORY OF UTERINE SCAR FROM PREVIOUS SURGERY Status: Acute Current Visit: Yes (5) Acute blood loss anemia SNOMED Code(s): 113889575 Code(s): D62 - ACUTE POSTHEMORRHAGIC ANEMIA Status: Acute Current Visit: Yes - Problem List Review Problem List Initiated/Reviewed/Updated: Yes - Assessment Assessment:: POD#3 - Plan Plan:: * Routine cares * Iron for post op anemia * Routine cares * Discharge today
[2020-03-11] MEDS ORDERED: Polyethylene Glycol 3350 Powder 17 GM Packet PO ONE (08:47)
[2020-03-11] MEDS: Prenatal Multivitamin with Calcium/Folic Acid/Iron Tab PO SCH (09:50)
--- NOTE | 2020-03-11 10:24 | PCM.DCSUM1 ---
Discharge Summary - Discharge Data Discharge Date: 03/11/20 Discharge Disposition: Home, Self-Care 01 Condition: Good - Referral to Home Health Primary Care Physician: Lily Vasquez MD - Discharge Diagnosis/Problem(s) (1) 39 weeks gestation of SNOMED Code(s): 79745271 ICD Code: Z3A.39 - 39 WEEKS GESTATION OF Status: Acute Current Visit: No (2) IUGR (intrauterine growth restriction) SNOMED Code(s): 63615403 ICD Code: [id number] - Status: Acute Current Visit: No (3) Non-reassuring status SNOMED Code(s): 314300334 ICD Code: [id number] - Status: Acute Current Visit: Yes (4) S/P primary low transverse SNOMED Code(s): 587750693, 17847621, 183569112, 212778916, [id number] ICD Code: Z98.891 - HISTORY OF UTERINE SCAR FROM PREVIOUS SURGERY Status: Acute Current Visit: Yes (5) Acute blood loss anemia SNOMED Code(s): 739650869 ICD Code: D62 - ACUTE POSTHEMORRHAGIC ANEMIA Status: Acute Current Visit: Yes - Patient Summary/Data Operative Procedure(s) Performed: Primary low transverse Complications: None Consults: None Recommended Follow-up Testing/Procedures: Follow up in 3 weeks for check Hospital Course: 29 y/o at 30 0/7 wks who presented for IOL for IUGR. Induction done with pitocin and AROM. During labor course patient with recurrent decelerations. Was eventually taken for PLTCS. See operative note. did well and was discharged home on POD#3 - Patient Instructions Diet: Regular Diet as Tolerated Activity: No Lifting Over 10 Pounds Activity, Other: Pelvic rest for 6 weeks Driving: Do Not Drive (While taking narcotics ) Showering/Bathing: May Shower, No Tub Bathing/Swimming Wound/Incision Care: Keep Operative Site/Wound Site Clean and Dry Notify Provider of: Fever, Increased Pain, Swelling and Redness, Drainage, Nausea and/or Vomiting - Discharge Plan *PRESCRIPTION DRUG MONITORING PROGRAM REVIEWED*: No *COPY OF PRESCRIPTION DRUG MONITORING REPORT IN PATIENT VÍCTOR: No Prescriptions/Med Rec: Acetaminophen/oxyCODONE [Percocet 325-5 MG] 1 - 2 tab PO Q4H PRN #25 tablet PRN Reason: Pain (Severe 7-10) Home Medications: Home Meds Vits #93/Iron Fum/FA [ Formula Tablet] 1 each PO DAILY 03/07/20 [History] Acetaminophen/oxyCODONE [Percocet 325-5 MG] 1 - 2 tab PO Q4H PRN #25 tablet 03/10/20 [Rx] Docusate Sodium [Colace] 100 mg PO Q12H PRN cap 03/10/20 [Rx] Ibuprofen [Motrin] 600 mg PO Q6H PRN tablet 03/10/20 [Rx] Patient Handouts: Delivery, Care After Referrals: Liyl Vasquez MD [Primary Care Provider] - (3 weeks for / post op check ) - Discharge Summary/Plan Comment DC Time >30 min.: No - Patient Data Vitals - Most Recent: Last Vital Signs Temp 37.0 C 03/11/20 02:50 Pulse 68 03/11/20 02:50 Resp 15 03/11/20 02:50 BP 121/81 03/11/20 02:50 Pulse Ox 98 03/11/20 02:50 Weight - Most Recent: 85.502 kg Med Orders - Current: Current Medications Docusate Sodium (Colace) 100 mg PO Q12H PRN PRN Reason: Constipation Last Admin: 03/11/20 02:48 Dose: 100 mg Documented by: Ibuprofen (Motrin) 600 mg PO Q6H PRN PRN Reason: mild pain or fever Last Admin: 03/11/20 05:33 Dose: 600 mg Documented by: Naloxone HCl (Narcan) 0.1 mg IVPUSH SEECOMMENT PRN PRN Reason: Respiratory Depression Oxycodone/Acetaminophen (Percocet 325-5 Mg) 1 tab PO Q4H PRN PRN Reason: Pain (moderate 4-6) Last Admin: 03/11/20 02:48 Dose: 1 tab Documented by: Oxycodone/Acetaminophen (Percocet 325-5 Mg) 2 tab PO Q4H PRN PRN Reason: Pain (severe 7-10) Last Admin: 03/11/20 09:49 Dose: 2 tab Documented by: Prenat Multivit/Specialized Language Instructor/Iron/Folic Ac ( Plus Iron) 1 each PO DAILY ERICKA Last Admin: 03/11/20 09:50 Dose: 1 each Documented by: Discontinued Medications Cefazolin Sodium (Ancef) Confirm Administered Dose 2 gm .ROUTE .STK-MED ONE Stop: 03/08/20 09:58 Citric Acid/Sodium Citrate (Bicitra Solution) 30 ml PO ONETIME ONE Stop: 03/08/20 07:33 Last Admin: 03/08/20 09:06 Dose: 30 ml Documented by: Dexamethasone (Dexamethasone) Confirm Administered Dose 4 mg .ROUTE .STK-MED ONE Stop: 03/08/20 10:01 Diphenhydramine HCl (Benadryl) 25 mg IVPUSH Q6H PRN PRN Reason: pruritis Diphenhydramine HCl (Benadryl) 25 mg IVPUSH Q6H PRN PRN Reason: Pruritis Ephedrine Sulfate (Ephedrine Sulfate) 5 mg IVPUSH ASDIRECTED PRN PRN Reason: Hypotension Fentanyl (Sublimaze) 100 mcg EPIDUR Q3H PRN PRN Reason: Pain Last Admin: 03/07/20 21:53 Dose: 100 mcg Documented by: Fentanyl (Sublimaze) Confirm Administered Dose 100 mcg .ROUTE .STK-MED ONE Stop: 03/08/20 09:23 Fentanyl (Sublimaze) Confirm Administered Dose 100 mcg .ROUTE .Birdi-MED ONE Stop: 03/08/20 09:33 Fentanyl (Sublimaze) 50 mcg IVPUSH Q5M PRN PRN Reason: Pain Fentanyl/Bupivacaine HCl (Fentanyl/Bupivacaine/Ns 2 Mcg-0.125% 100 Ml) 100 ml EPIDUR ASDIRECTED PRN PRN Reason: Pain Last Admin: 03/08/20 06:30 Dose: 100 ml Documented by: Oxytocin/Lactated Ringer's (Pitocin In Lr 10 Units/1,000 Ml) 10 unit in 1,000 mls @ 12 mls/hr IV TITRATE ERICKA; Protocol Last Titration: 03/08/20 07:45 Dose: 0.5 munits/min, 3 mls/hr Documented by: Oxytocin/Lactated Ringer's (Pitocin In Lr 10 Units/1,000 Ml) 10 unit in 1,000 mls @ 500 mls/hr IV .CONTINUOUS ERICKA Lactated Ringer's (Ringers, Lactated) 1,000 mls @ 40 mls/hr IV ASDIRECTED ERICKA Last Admin: 03/08/20 07:49 Dose: 100 mls/hr Documented by: Cefazolin Sodium/Dextrose 2 gm (/ Premix) 50 mls @ 100 mls/hr IV ONETIME ONE Stop: 03/08/20 08:14 Last Admin: 03/10/20 19:38 Dose: Not Given Documented by: Azithromycin 500 mg/ Sodium (Chloride) 250 mls @ 250 mls/hr IV ONETIME ONE Stop: 03/08/20 08:44 Last Admin: 03/10/20 19:38 Dose: Not Given Documented by: Lactated Ringer's (Ringers, Lactated) Confirm Administered Dose 2,000 mls @ as directed .ROUTE .STK-MED ONE Stop: 03/08/20 09:58 Dextrose/Lactated Ringer's (Dextrose 5%-Lactated Ringers) 1,000 mls @ 125 [facility]: 03/08/20 18:37 Last Admin: 03/08/20 13:12 Dose: 125 mls/hr Documented by: Ketamine HCl (Ketalar) Confirm Administered Dose 500 mg .ROUTE .STK-MED ONE Stop: 03/08/20 09:36 Ketorolac Tromethamine (Toradol) Confirm Administered Dose 30 mg .ROUTE .STK-MED ONE Stop: 03/08/20 09:58 Ketorolac Tromethamine (Toradol) 30 mg IVPUSH Q6H [facility] Stop: 03/09/20 04:31 Last Admin: 03/09/20 05:10 Dose: 30 mg Documented by: Meperidine HCl (Meperidine) 12.5 mg IVPUSH ONETIME PRN PRN Reason: Shivering Metoclopramide HCl (Reglan) 10 mg IVPUSH ONETIME ONE Stop: 03/08/20 07:33 Last Admin: 03/08/20 09:06 Dose: 10 mg Documented by: Midazolam HCl (Versed 1 Mg/Ml) Confirm Administered Dose 2 mg .ROUTE .STK-MED ONE Stop: 03/08/20 09:32 Misoprostol (Cytotec) 25 mcg VAG Q4H PRN PRN Reason: cervical ripening Misoprostol (Cytotec) Confirm Administered Dose 25 mcg .ROUTE .STK-MED ONE Stop: 03/07/20 16:29 Last Admin: 03/08/20 06:29 Dose: Not Given Documented by: Morphine Sulfate (Duramorph Pf) Confirm Administered Dose 1 mg .ROUTE .STK-MED ONE Stop: 03/08/20 09:44 Nalbuphine HCl (Nubain) 10 mg IVPUSH Q2H PRN PRN Reason: Pain Ondansetron HCl (Zofran) 4 mg IVPUSH Q4H PRN PRN Reason: Nausea/Vomiting Last Admin: 03/08/20 08:41 Dose: 4 mg Documented by: Ondansetron HCl (Zofran) 4 mg IVPUSH ONETIME PRN PRN Reason: Nausea/Vomiting Oxytocin (Pitocin) Confirm Administered Dose 20 unit .ROUTE .STK-MED ONE Stop: 03/08/20 09:58 Polyethylene Glycol (Miralax) 17 gm PO ONETIME ONE Stop: 03/11/20 08:48 Last Admin: 03/11/20 09:50 Dose: 17 gm Documented by: Propofol (Diprivan 20 Ml) Confirm Administered Dose 200 mg .ROUTE .STK-MED ONE Stop: 03/08/20 09:34 Sodium Chloride (Saline Flush) 10 ml FLUSH ASDIRECTED PRN PRN Reason: Keep Vein Open Zolpidem Tartrate (Ambien) 5 mg PO BEDTIME PRN PRN Reason: Insomnia
[2020-03-11] MEDS ORDERED: Measles, Mumps & Rubella Vaccine 0.5 ML SDV SUBCUT ONE (13:00)
== END 2020-03-11 12:43 | disposition home or self-care (01) | DRG 787 ==
LOC: JD.OB 09:30 → OBSVTOIN 03-08 09:30 → JD.OB 03-08 09:31 → EDSTATUS 03-11 15:23
PROVIDERS: ADMIT Obstetrics & Gynecology; ATTEND Obstetrics & Gynecology
PROC: 3E033VJ Introduction of Other Hormone into Peripheral Vein, Percutaneous Approach (ICD-10-PCS; principal; 2020-03-08)
PROC: 10D00Z1 Extraction of Products of Conception, Low, Open Approach (ICD-10-PCS; 2020-03-08)
PROC: 10907ZC Drainage of Amniotic Fluid, Therapeutic from Products of Conception, Via Natural or Artificial Opening (ICD-10-PCS; 2020-03-08)
DX: O36.5930 Maternal care for other known or suspected poor fetal growth, third trimester, not applicable or unspecified (principal); D62 Acute posthemorrhagic anemia; O98.52 Other viral diseases complicating childbirth; Z3A.39 39 weeks gestation of pregnancy; Z37.0 Single live birth; O99.02 Anemia complicating childbirth; O76 Abnormality in fetal heart rate and rhythm complicating labor and delivery; Z87.891 Personal history of nicotine dependence; B00.9 Herpesviral infection, unspecified; O69.81X0 Labor and delivery complicated by cord around neck, without compression, not applicable or unspecified; Z11.59 Encounter for screening for other viral diseases
CPT/HCPCS: 36415; 51702; 59025; 85027; 86592; 86850; 86900; 86901; 90471; 90707; 94762; A9270-GY; J0690; J1100; J1885; J2250; J2274; J2405; J2590; J2704; J2765; J3010; J7120; J7121; U0002